=== PATIENT | female | born 1990 | race American Indian/Alaskan Native ===

== ENCOUNTER 2016-07-17 16:52 | Emergency (ER) | payer MEDICAID, OTHER ==
[2016-07-17 17:30] LABS: Bilirubin,Urine NEG (Negative); Blood,Urine NEG (Negative); Ketones,Urine NEG (Negative); Leukocyte Esterase,Urine SM (Negative); Mucus,Urine FEW /HPF; Nitrite,Urine NEG (Negative); Protein,Urine <15 mg/dL mg/dL (Negative)
[2016-07-17] MEDS ORDERED: TYLENOL PO ONE (21:42)
--- NOTE | 2016-07-17 21:43 | Emergency Department Report ---
- General Chief Complaint: Upper Respiratory Infection Stated Complaint: CHEST PAIN /ABD PAIN/ POSS HBP Time Seen by Provider: 07/17/16 21:33 Source: patient Mode of arrival: Ambulatory Limitations: No Limitations - History of Present Illness Initial Comments: This is a 25-year-old female who reports that she has had a headache since yesterday. She describes it as left frontal in nature. She describes some pain radiating to the left jaw as well. She states that she has had pain in her left jaw for the last 2 days as well. She attributes it to her first molar on the left bottom. She denies any drainage from her taste changes. She denies any specific trauma. She does not have any ear pain. She denies any sinus congestion at this time or sore throat. Patient also is complaining of right-sided lower abdominal pains which come and go. She states this is a common pain for her that seems to be somewhat cyclical related to her period. Patient states that she's been told many times a minutes he gets of her ovarian cyst. Patient does occasionally take Tylenol for the pain but usually chooses to take nothing. She states when the pain comes it is usually relatively short lived before returning. Patient indicates she still been able to eat well at home. No nausea vomiting diarrhea is reported no fevers reported. No vaginal discharge or dysuria is reported. States that she has irregular periods in general. - Related Data Previous Rx's Medication Instructions Recorded Last Taken Type Metaxalone [Skelaxin] 800 mg PO TID PRN #15 tablet 05/30/16 Unknown Rx Neomycin Gandhi/Bacitrac Zn/Poly 1 each TP BID #10 oint.pack 05/30/16 Unknown Rx [Neosporin Ointment Packet] traMADol [Ultram] 50 mg PO Q6HR PRN #20 tablet 05/30/16 Unknown Rx HYDROcodone/APAP 5-325 [[place] 1 each PO Q6HR PRN #15 tablet 07/17/16 Unknown Rx 5/325] Lisinopril [Zestril TAB] 20 mg PO QDAY #30 tablet 07/17/16 Unknown Rx Promethazine [Phenergan TAB] 25 mg PO Q8HR PRN #10 tab 07/17/16 Unknown Rx Allergies Allergy/AdvReac Type Severity Reaction Status Date / Time NSAIDS (Non-Steroidal AdvReac Hives Verified 05/30/16 15:29 Anti-Inflamma ED Review of Systems ROS: Stated complaint: CHEST PAIN /ABD PAIN/ POSS HBP Other details as noted in HPI Comment: All other systems reviewed and negative Constitutional: denies: chills, fever Eyes: denies: eye pain, eye discharge, vision change ENT: dental pain. denies: ear pain Respiratory: denies: cough, shortness of breath, wheezing Cardiovascular: denies: chest pain, palpitations Endocrine: no symptoms reported Gastrointestinal: abdominal pain. denies: nausea, diarrhea Genitourinary: denies: urgency, dysuria, discharge Musculoskeletal: denies: back pain, joint swelling, arthralgia Skin: denies: rash, lesions Neurological: headache. denies: weakness, paresthesias Psychiatric: denies: anxiety, depression Hematological/Lymphatic: denies: easy bleeding, easy bruising ED Past Medical Hx - Past Medical History Previous Medical History?: Yes Hx Hypertension: Yes - Surgical History Past Surgical History?: Yes Additional Surgical History: eye - Social History Smoking Status: Current Every Day Smoker Substance Use Type: Alcohol, Prescribed - Medications Home Medications: Home Medications Medication Instructions Recorded Confirmed Last Taken Type Metaxalone [Skelaxin] 800 mg PO TID PRN #15 tablet 05/30/16 Unknown Rx Neomycin Gandhi/Bacitrac Zn/Poly 1 each TP BID #10 oint.pack 05/30/16 Unknown Rx [Neosporin Ointment Packet] traMADol [Ultram] 50 mg PO Q6HR PRN #20 tablet 05/30/16 Unknown Rx HYDROcodone/APAP 5-325 [[place] 1 each PO Q6HR PRN #15 tablet 07/17/16 Unknown Rx 5/325] Lisinopril [Zestril TAB] 20 mg PO QDAY #30 tablet 07/17/16 Unknown Rx Promethazine [Phenergan TAB] 25 mg PO Q8HR PRN #10 tab 07/17/16 Unknown Rx ED Physical Exam - General Limitations: No Limitations General appearance: alert, in no apparent distress, obese - Head Head exam: Present: atraumatic, normocephalic - Eye Eye exam: Present: normal appearance, PERRL, EOMI. Absent: scleral icterus - ENT ENT exam: Present: normal orophraynx, mucous membranes moist, TM's normal bilaterally, normal external ear exam, other (good dentition in general. Left lower first molar with minimal tenderness to palpation. No abscesses noted with normal gingiva. The parents.) - Neck Neck exam: Present: normal inspection, full ROM. Absent: tenderness, meningismus, lymphadenopathy - Respiratory Respiratory exam: Present: normal lung sounds bilaterally. Absent: respiratory distress - Cardiovascular Cardiovascular Exam: Present: regular rate, normal rhythm. Absent: systolic murmur, diastolic murmur, rubs, gallop - GI/Abdominal GI/Abdominal exam: Present: soft, tenderness (mild in the lower right quadrant/ suprapubic region. No rebound or guarding is appreciated.), normal bowel sounds. Absent: organomegaly, pulsatile mass - Extremities Exam Extremities exam: Present: normal inspection. Absent: tenderness, pedal edema, calf tenderness - Back Exam Back exam: Present: normal inspection. Absent: tenderness, CVA tenderness (R), CVA tenderness (L) - Neurological Exam Neurological exam: Present: alert, oriented X3, normal gait - Psychiatric Psychiatric exam: Present: normal affect, normal mood - Skin Skin exam: Present: warm, dry, intact, normal color. Absent: rash ED Course Vital Signs 07/17/16 16:59 Temperature 98.9 F Pulse Rate 110 H Respiratory 20 Rate Blood Pressure 138/90 O2 Sat by Pulse 100 Oximetry - Reevaluation(s) Reevaluation #1: 07/17/16 21:54 A myriad of complaints. Patient is one week on amoxicillin for her sinus infection. I feel infectious component related to her dental pain is unlikely. I do not appreciate any abscess. She does not have any adenopathy in the anterior cervical region either. I did suggest that she follow-up with a dentist for further care. The dentition in general appears fairly good however I suspect dental carious the etiology for her discomfort on the on the mouth. There is a strong suspicion Y minus well that this is contributing to her headache. Her headache disappeared retention nature. She denies any photophobia. She does not have nausea with this either. I did encourage her to take pain medication and get rest for this. She is agreeable with this plan. In regards to the abdominal pain, this presents a little bit of a diagnostic quandary. I am not overly concerned with her abdominal examination however it is in the area there potentially for the appendix. In addition the ovarian cyst could potentially have a torsion component to it as well. I did way both these thoughts into account as well as other possibilities and pathology related to the abdomen. Her belly exam is seems very benign at this time. She describes a fairly prolonged history of on and off similar pains. There does appear to be a cyclical nature as well. I have very low suspicion of this time for torsion or other surgical etiology at this time. I feel the patient is safe for home. Critical care attestation.: If time is entered above; I have spent that time in minutes in the direct care of this critically ill patient, excluding procedure time. ED Disposition Clinical Impression: Pain, dental Headache Qualifiers: Headache type: tension-type Headache chronicity pattern: episodic headache Intractability: not intractable Qualified Code(s): G44.219 - Episodic tension- type headache, not intractable Abdominal pain Qualifiers: Abdominal location: right lower quadrant Qualified Code(s): R10.31 - Right lower quadrant pain Disposition: DISCHARGED TO HOME OR SELFCARE Is pt being admited?: No Does the pt Need Aspirin: No Condition: Stable Instructions: Tension Headache (ED), Toothache (ED) Additional Instructions: Rest tonight. Take medications for comfort. Follow up with the dentist for further evaluation of your tooth. Consider following with the stereo plotter operator regarding your frequent ovarian cyst pain. Prescriptions: HYDROcodone/APAP 5-325 [[place] 5/325] 1 each PO Q6HR PRN #15 tablet PRN Reason: Pain Lisinopril [Zestril TAB] 20 mg PO QDAY #30 tablet Promethazine [Phenergan TAB] 25 mg PO Q8HR PRN #10 tab PRN Reason: Nausea Referrals: MARINA FREGOSO MD, PHD [Staff Physician] - 3-5 Days [facility] [Provider Group] - 3-5 Days [facility] [Provider Group] - 3-5 Days Time of Disposition: 21:44
[2016-07-17 22:01] VITALS: BP 132/86
== END 2016-07-17 22:05 | disposition home or self-care (01) ==
LOC: ED 16:52
DX: G44.219 Episodic tension-type headache, not intractable (principal); R10.31 Right lower quadrant pain; K08.89 Other specified disorders of teeth and supporting structures; I10 Essential (primary) hypertension; F17.200 Nicotine dependence, unspecified, uncomplicated
CPT/HCPCS: 81001; 81025; 99283